=== PATIENT | female | born 1955 | race Caucasian/White ===

== ENCOUNTER 2017-09-25 10:10 | Emergency (ER) | payer BC ==
--- NOTE | 2017-09-25 12:14 | RAD ---
INDICATION: Right wrist pain and swelling. TECHNIQUE: 3 views of the right wrist were obtained. FINDINGS: There is ulnar minus variance of approximately 5 mm. There is diffuse soft tissue swelling. No fracture is seen. There is mild widening of the joint space between the scaphoid and lunate bones suspicious for scapholunate ligament tear. IMPRESSION: 1. SOFT TISSUE SWELLING. 2. POSSIBLE SCAPHOLUNATE LIGAMENT TEAR. THIS CAN BE FURTHER EVALUATED WITH AN MRI OF THE WRIST CLINICALLY NEEDED.
[2017-09-25 12:17] VITALS: BP 115/71
--- NOTE | 2017-09-25 21:54 | UC ---
Progress - Progress Note Progress Note: Asked by Dr. Khan to follow-up on INR no result in computer test cancelled - unclear why testing being run now [facility] 09/25/2017 1766
--- NOTE | 2017-09-26 08:25 | ED ---
Progress - Progress Note Progress Note: Asked by Dr. Khan to follow-up on INR no result in computer test cancelled - unclear why testing being run now [facility] 09/25/2017 4043 The patient's INR is 3.59. Reviewing the chart she is on coumadin for Heart Valve. This is very close to the therapeutic range of 2.5 to 3.5. Given it is a valve and no obvious bleeding or bruising mentioned on exam the result will be sent to her Primary doctor. No change at this time. Course/Dx - Diagnoses Provider Diagnoses: Swelling
--- NOTE | 2017-10-09 17:25 | UC ---
Dominique Richmond Alfonso, scribed for Hien Khan DO on 09/25/17 at 1143 . Hand/Wrist HPI - HPI Summary HPI Summary: This patient is a 62 year old F presenting to [facility] with a chief complaint of right wrist pain and swelling since earlier today. She hurt her wrist mopping this morning. The patient rates the aching pain 2/10 in severity. Symptoms aggravated by movement. Symptoms alleviated by rest. Patient denies fever, chills, diaphoresis, SOB, CP, abdominal pain, recent trauma, numbness, tingling , and weakness. - History Of Current Complaint Chief Complaint: UCUpperExtremity Stated Complaint: SWELLING AND PAINFUL WRIST Time Seen by Provider: 09/25/17 11:22 Hx Obtained From: Patient Onset/Duration: Sudden Onset, Lasting Hours, Still Present Severity Currently: Mild Pain Intensity: 1 Pain Scale Used: 0-10 Numeric Character Of Pain: Aching Aggravating Factor(s): Movement Alleviating Factor(s): Rest Associated Signs And Symptoms: Positive: Swelling. Negative: Fever, Weakness, Numbness/Tingling Related History: Occupational Injury - Allergies/Home Medications Allergies/Adverse Reactions: Allergies Allergy/AdvReac Type Severity Reaction Status Date / Time No Known Allergies Allergy Verified 09/25/17 10:39 Home Medications: Home Medications Cholecalciferol [Vitamin D-3] 1 tab PO DAILY 09/25/17 [History Confirmed ] PMH/Surg Hx/FS Hx/Imm Hx Previously Healthy: No Endocrine History: Dyslipidemia Cardiovascular History: Hypertension, Other Other Cardiovascular History: Valve disease Other History Of: Anticoagulant Therapy - coumadin - Surgical History Surgical History: Yes Surgery Procedure, Year, and Place: 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) 2005 , TUBAL LIGATION - Family History Known Family History: Positive: Cardiac Disease - CHF, Hypertension - Social History Alcohol Use: None Substance Use Type: None Smoking Status (MU): Never Smoked Tobacco - Immunization History Most Recent Influenza Vaccination: 06/2017 Most Recent Tetanus Shot: < 10 yrs Review of Systems Constitutional: Negative Respiratory: Other - Negative SOB Cardiovascular: Other - Negative CP Gastrointestinal: Other - Negative abd pain Musculoskeletal: Other: - right wrist pain and swelling; negative recent trauma Neurological: Other - Negative numbness, tingling, and weakness. All Other Systems Reviewed And Are Negative: Yes Physical Exam Triage Information Reviewed: Yes Appearance: Well-Appearing, No Pain Distress, Well-Nourished Vital Signs: Initial Vital Signs Temp 98.4 F 09/25/17 10:33 Pulse 66 09/25/17 10:33 Resp 16 09/25/17 10:33 BP 125/64 09/25/17 10:33 Pulse Ox 97 09/25/17 10:33 Vital Signs Reviewed: Yes Eyes: Positive: Conjunctiva Clear. Negative: Discharge ENT: Positive: Hearing grossly normal. Negative: Muffled voice, Hoarse voice Neck exam: Normal Neck: Positive: Supple Respiratory: Positive: Lungs clear, Normal breath sounds, No respiratory distress, No accessory muscle use Cardiovascular: Positive: RRR, No Murmur Abdomen Description: Positive: Nontender, Soft. Negative: Distended, Guarding Bowel Sounds: Positive: Present Musculoskeletal Exam: Other - Right wrist impressive swelling without erythema, bruising, or calor. Tenderness over the right wrist syndesmosis muscle. Distal neurovascular appears to be intact. Neurological: Positive: Alert, Muscle Tone Normal Psychological Exam: Normal Psychological: Positive: Age Appropriate Behavior Skin Exam: Normal Skin: Positive: Other - Warm, Dry, Normal color Diagnostics - Laboratory Diagnostic Studies Completed/Ordered: Wrist XR reveals, per radiologist, 1. SOFT TISSUE SWELLING. 2. POSSIBLE SCAPHOLUNATE LIGAMENT TEAR. THIS CAN BE FURTHER EVALUATED WITH AN MRI OF THE WRIST CLINICALLY NEEDED. [facility] physician has reviewed this radiology report and agrees. Hand/Wrist Course/Dx - Course Course Of Treatment: Patient will be discharged with follow up from PCP. The patient is agreeable with this plan. Medications reviewed. Allergies reviewed - Differential Dx/Diagnosis Provider Diagnoses: wrist injury Discharge - Discharge Plan Condition: Stable Disposition: HOME Patient Education Materials: Wrist Injury (ED), Splint Care (ED) Forms: *Work Release Referrals: Addy Hatfield MD [Primary Care Provider] - If Needed Aaron Rowell MD [Medical Doctor] - (follow up in 1-4 days.) The documentation as recorded by the Dominique lopez Alfonso accurately reflects the service I personally performed and the decisions made by , Hien Khan DO.
== END 2017-09-25 13:30 | disposition home or self-care (01) ==
LOC: UCEAST 10:10
DX: S69.91XA Unspecified injury of right wrist, hand and finger(s), initial encounter (principal); X50.3XXA Overexertion from repetitive movements, initial encounter; X50.1XXA Overexertion from prolonged static or awkward postures, initial encounter; Y93.E5 Activity, floor mopping and cleaning; Y92.9 Unspecified place or not applicable; Y99.0 Civilian activity done for income or pay; E78.5 Hyperlipidemia, unspecified; I10 Essential (primary) hypertension; Z95.2 Presence of prosthetic heart valve; Z79.01 Long term (current) use of anticoagulants
CPT/HCPCS: 36415; 85610; 99212; G0463